=== PATIENT | female | born 1985 | race Caucasian/White ===

== ENCOUNTER 2017-08-29 12:37 | Inpatient (IN) | payer MEDICAID ==
[~2017-08-29] VITALS: Ht 170.2 cm; Wt 89.0 kg
[2017-08-29] VITALS (26 sets, daily range): BP systolic 85–97; BP diastolic 36–64; PULSE 73–98; RESP 18–20; TEMP 97.7–98.7
[2017-08-29] MEDS ORDERED: SODIUM CHLOR 0.9% 1000 ML INJ 1,000 ML OTHER PRN (14:14)
[2017-08-29] MEDS ORDERED: LACTATED RINGER'S 1000 ML INJ 1,000 ML IV PRN (14:14)
[2017-08-29] MEDS ORDERED: LIDOCAINE HCL 1% 50 ML VIAL INFIL PRN (14:15)
[2017-08-29] MEDS ORDERED: PENICILLIN G POTASSIUM INJ 5,000,000 UNITS in SODIUM CHLORIDE 0.9% INJ 100 ML IV ONE (14:15)
[2017-08-29] MEDS: SODIUM CHLORIDE 0.9% FLUSH 10 ML FLUSH IV FLUSH SCH ×2 (14:15→21:00)
[2017-08-29] MEDS ORDERED: SODIUM CHLORID 0.9% 500 ML INJ 500 ML IV PRN (14:15)
[2017-08-29] MEDS ORDERED: OXYTOCIN 30 UNITS-500ML PREMIX 500 ML IV ONE (14:15)
[2017-08-29] MEDS ORDERED: LIDOCAINE HCL 1% 50 ML VIAL I-DERMAL PRN (14:15)
[2017-08-29] MEDS ORDERED: CITRIC ACID-SODIUM CITRATE LIQ 30 ML UDC PO SCH (14:15)
[2017-08-29] MEDS ORDERED: SODIUM CHLORIDE 0.9% FLUSH 10 ML FLUSH IV FLUSH PRN (14:15)
[2017-08-29] MEDS ORDERED: MINERAL OIL 10 ML VIAL TOPICAL PRN (14:15)
--- NOTE | 2017-08-29 14:30 | HHI.HP ---
HPI Chief Complaint oligohydramnios Date Seen: Aug 29, 2017 Travel History International Travel<30 Days: No Contact w/Intl Traveler<30Days: No Known Affected Area: No History of Present Illness HPI 32 yo G1 with iup at 40 wk seen in the office today and found to have oligohydramnios. She is having good FM, no vb/lof, irreg contractions. She is a pt of [facility]; Her pnc has been uncomplicated. She has gained 40 pounds. Upon arrival to &D, she had srom, clear per RN. Weeks Gestation: 40 : 1 History Past Medical History Medical History: Denies Significant Hx Past Surgical History Narrative Surgical eye surgery Family History Family History: Negative Social History Alcohol Use: No Tobacco Use: No Substance Abuse: No Allergies-Medications (Allergen,Severity, Reaction): Coded Allergies: No Known Allergies (Verified Allergy, Severe, 08/29/17) Review of Systems General / Constitutional: No: Fever, Weight Gain, Chills, Other Eyes: No: Diploplia, Blurred Vision, Visual changes, Pain, Photophobia HENT: No: Headaches, Vertigo, Lightheadedness Cardiovascular: No: Irregular Rhythm, Chest Pain or Discomfort, Palpitations, Tachycardia, Syncope, Varicosities, Edema, Cyanosis Respiratory: No: Cough, Short of Breath, Other Gastrointestinal: No: Nausea, Vomiting, Diarrhea Genitourinary: No: Decreased Urinary Output, Oliguria Musculoskeletal: No: Limited ROM, Weakness, Cramping, Edema, Pain Skin: No Rash, No Itching, No Dryness, No Lumps, No Change in Pigmentation, No Change in Nails, No Alopecia, No Lesions Neurologic: No: Weakness, Dizziness, Syncope, Focal Abnormalities, Coordination Problem, Headache, Slurred Speech, Seizures Psychiatric: No: Depression, Suicidal Ideations, Homicidal Ideation Endocrine: No: Heat Intolerance, Cold Intolerance, Polydipsia, Polyuria, Other Physical Exam Narrative GENERAL: Well-nourished, well-developed patient. SKIN: Warm and dry. HEAD: Normocephalic and atraumatic. EYES: No scleral icterus. No injection or drainage. ENT: No nasal drainage noted. Mucous membranes pink. Airway patent. NECK: Supple, trachea midline. No JVD. CARDIOVASCULAR: Regular rate and rhythm without murmurs, gallops, or rubs. RESPIRATORY: Breath sounds equal bilaterally. No accessory muscle use. ABDOMEN/GI: Abdomen soft, non-tender, bowel sounds present, no rebound, no guarding Gravid to 40 weeks size GENITOURINARY: External Genitalia: intact and normal in appearance BUS glands: [-] Cervix:2/-3 Presentation: [facility] Membranes:srom while on L&D Uterine Contractions: [-] FHT's: Category: I Decels: [-] EXTREMITIES: No cyanosis or edema. BACK: Nontender without obvious deformity. No CVA tenderness. NEUROLOGICAL: Awake and alert. Motor and sensory grossly within normal limits. Five out of 5 muscle strength in all muscle groups. Normal speech. Caprini VTE Risk Assessment Caprini VTE Risk Assessment: No/Low Risk (score <= 1) Caprini Risk Assessment Model Point Value = 1 Point Value = 2 Point Value = 3 Point Value = 5 Age 41-60 Minor surgery BMI > 25 kg/m2 Swollen legs Varicose veins or History of unexplained or recurrent spontaneous Oral contraceptives or hormone replacement Sepsis (< 1 month) Serious lung disease, including pneumonia (< 1 month) Abnormal pulmonary function Acute myocardial infarction Congestive heart failure (< 1 month) History of inflammatory bowel disease Medical patient at bed rest Age 61-74 Arthroscopic surgery Major open surgery (> 45 min) Laparoscopic surgery (> 45 min) Malignancy Confined to bed (> 72 hours) Immobilizing plaster cast Central venous access Age >= 75 History of VTE Family history of VTE Factor V Leiden Prothrombin [id number] Lupus anticoagulant Anticardiolipin antibodies Elevated serum homocysteine Heparin-induced thrombocytopenia Other congenital or acquired thrombophilia Stroke (< 1 month) Elective arthroplasty Hip, pelvis, or leg fracture Acute spinal cord injury (< 1 month) Prophylaxis Regimen Total Risk Factor Score Risk Level Prophylaxis Regimen 0-1 Low Early ambulation 2 Moderate Order ONE of the following: *Sequential Compression Device (SCD) *Heparin 5000 units SQ BID 3-4 Higher Order ONE of the following medications: *Heparin 5000 units SQ TID *Enoxaparin/Lovenox 40 mg SQ daily (WT < 150 kg, CrCl > 30 mL/min) *Enoxaparin/Lovenox 30 mg SQ daily (WT < 150 kg, CrCl > 10-29 mL/min) *Enoxaparin/Lovenox 30 mg SQ BID (WT < 150 kg, CrCl > 30 mL/min) AND/OR *Sequential Compression Device (SCD) 5 or more Highest Order ONE of the following medications: *Heparin 5000 units SQ TID (Preferred with Epidurals) *Enoxaparin/Lovenox 40 mg SQ daily (WT < 150 kg, CrCl > 30 mL/min) *Enoxaparin/Lovenox 30 mg SQ daily (WT < 150 kg, CrCl > 10-29 mL/min) *Enoxaparin/Lovenox 30 mg SQ BID (WT < 150 kg, CrCl > 30 mL/min) AND *Sequential Compression Device (SCD) Data Data Vital Signs Reviewed: Yes Orders Orders Admit To Inpatient (08/29/17 ) Vital Signs (Adult) .Per protocol (08/29/17 14:14) Activity Oob Ad Yolande (08/29/17 14:14) Heart (08/29/17 14:14) Amnioinfusion (08/29/17 14:14) Urinary Catheter Management .ONCE (08/29/17 14:14) Lactated Ringer's 1000 Ml Inj (Lr 1000 M (08/29/17 14:14) Lactated Ringer's 1000 Ml Inj (Lr 1000 M (08/29/17 14:14) Sodium Chlorid 0.9% 500 Ml Inj (Ns 500 M (08/29/17 14:15) Sodium Chlor 0.9% 1000 Ml Inj (Ns 1000 M (08/29/17 14:34) Lidocaine 1% Inj (50 Ml) (Xylocaine 1% I (08/29/17 14:15) Citric Acid-Sodium Citrate Liq (Bicitra (08/29/17 14:15) Fentanyl Inj (Fentanyl Inj) (08/29/17 14:15) Fentanyl Inj (Fentanyl Inj) (08/29/17 14:15) Penicillin G Potassium Inj (Pfizerpen-G (08/29/17 14:15) Penicillin G Potassium Inj (Pfizerpen-G (08/29/17 18:15) Complete Blood Count With Diff (08/29/17 14:14) Hold Clot (08/29/17 14:14) Abo/Rh Blood Type (08/29/17 14:14) Urinalysis - C+S If Indicated (08/29/17 14:14) Drug Screen, Random Urine (08/29/17 14:14) Resp Oxygen Non Rebreathe Mask (08/29/17 ) ^ Epidural / Intrathecal Infus (08/29/17 14:14) Oxytocin 30 Units-500ml Premix (Pitocin (08/29/17 14:15) Lidocaine 1% Inj (50 Ml) (Xylocaine 1% I (08/29/17 14:15) Light Mineral Oil (Muri-Lube Oil) (08/29/17 14:15) Diet Regular Basic (08/29/17 Dinner) ^ Labor Induction (08/29/17 14:14) ^ Vaginal Insert (08/29/17 14:14) ^ Vaginal Lavage (08/29/17 14:14) Heart (08/29/17 14:14) Sodium Chloride 0.9% Flush (Ns Flush) (08/29/17 14:15) Sodium Chloride 0.9% Flush (Ns Flush) (08/29/17 14:15) Sodium Chlor 0.9% 1000 Ml Inj (Ns 1000 M (08/29/17 14:14) Dinoprostone Vag Insert (Cervidil Vag In (08/29/17 14:15) Inpatient Certification (08/29/17 ) Specimen To Be Collected PRN (08/29/17 14:14) Specimen To Be Collected PRN (08/29/17 14:14) Group B Strep: Positive Assessment/Plan Problem List: (1) Oligohydramnios ICD Codes: O41.00X0 - Oligohydramnios, unspecified trimester, not applicable or unspecified (2) PROM (premature rupture of membranes) ICD Codes: O42.90 - Premature rupture of membranes, unspecified as to length of time between rupture and onset of labor, unspecified weeks of gestation Assessment and Plan 32 yo G1 wiht iup at 40 wk admitted for iol due to oligohydramnios 1) IOL- family aware that it can be a prolonged process. will start with cervidil, then pitocin. Discussed risks of cd if arrest of dilation, descent, nrfht occurs. 2) PROM- 1335, clear 3) GBS- pcn prophy 4) fetus- cephalic, measures AGA, male BrandtNichole cardona MD Aug 29, 2017 14:29
[2017-08-29] MEDS ORDERED: SODIUM CHLOR 0.9% 1000 ML INJ 1,000 ML IV PRN (14:34)
[2017-08-29] MEDS: LACTATED RINGER'S 1000 ML INJ 1,000 ML IV SCH ×2 (14:48→19:17)
[2017-08-29] MEDS ORDERED: PRENTAB7 (14:57)
[2017-08-29] MEDS ORDERED: DINOPROSTONE 10 MG VAG INSERT VAGINAL ONE (15:00)
[2017-08-29 15:48] LABS: AUTOMATED NEUTROPHIL # 7.5 TH/MM3 (1.8-7.7); BASOPHIL % 0.4 % (0.0-2.0); EOSINOPHIL # 0.1 TH/MM3 (0-0.4); EOSINOPHIL % 1.1 % (0.0-4.0); HEMATOCRIT 36.9 % (35.0-46.0); HEMO FLAGS DIFF FINAL; LYMPHOCYTE # 1.7 TH/MM3 (1.0-4.8); MEAN CELL VOLUME 93.3 FL (80.0-100.0); MEAN CORPUSCULAR HEMOGLOBIN 31.4 PG (27.0-34.0); MEAN CORPUSCULAR HGB CONC 33.6 % (32.0-36.0); MONO % 6.6 % (0.0-8.0); NEUT % 74.9 % (16.0-70.0); PLATELET COUNT 259 TH/MM3 (150-450); RED BLOOD COUNT 3.96 MIL/MM3 (4.00-5.30); RED CELL DISTRIBUTION WIDTH 14.7 % (11.6-17.2)
[2017-08-29 17:35] LABS: BACTERIA, URINE FEW /hpf; BLOOD, URINE SMALL (NEG); CALCIUM OXALATE CRYSTALS,URINE OCC /hpf; COMMENT (UR) CULTURE INDICATED; CULTURE IF INDICATED CULTURE INDICATED; GLUCOSE,URINE NEG (NEG); KETONE, URINE NEG (NEG); MUCUS URINE FEW /lpf (OCC); NITRITE,URINE NEG (NEG); SQUAMOUS EPITHELIAL CELL URINE 41 /hpf (0-5); URINE COLOR YELLOW (YELLW/STRAW)
[2017-08-29] MEDS: PENICILLIN G POTASSIUM INJ 2,500,000 UNITS in SODIUM CHLORIDE 0.9% INJ 100 ML IV SCH ×2 (19:16→22:01)
[2017-08-30] VITALS (104 sets, daily range): BP systolic 78–135; BP diastolic 36–72; PULSE 61–121; RESP 16–20; TEMP 97.6–98.7; O2SAT 100
[2017-08-30] MEDS: PENICILLIN G POTASSIUM INJ 2,500,000 UNITS in SODIUM CHLORIDE 0.9% INJ 100 ML IV SCH ×4 (02:50→14:00)
[2017-08-30] MEDS ORDERED: OXYTOCIN 30 UNITS/NS 500ML PREMIX IV SCH (04:15)
[2017-08-30] MEDS ORDERED: fentaNYL 2MCG-BUPIV 0.125% INJ 100 ML ONE (08:50)
--- NOTE | 2017-08-30 08:50 | PD.LABORPN ---
Subjective Subjective starting to become uncomfortable Objective Vital Signs Vital Signs Date Time Temp Pulse Resp B/P (MAP) Pulse Ox O2 Delivery O2 Flow Rate FiO2 08/30/17 08:30 76 08/30/17 08:30 89 115/62 (79) 08/30/17 08:25 82 08/30/17 08:20 68 08/30/17 08:15 62 08/30/17 08:15 65 109/62 (78) 08/30/17 08:10 64 08/30/17 08:05 68 08/30/17 08:00 61 08/30/17 08:00 69 107/62 (77) 08/30/17 07:55 78 08/30/17 07:50 75 08/30/17 07:45 64 08/30/17 07:45 72 107/66 (80) 08/30/17 07:40 74 08/30/17 07:35 69 08/30/17 07:30 97.7 08/30/17 07:30 20 08/30/17 07:30 79 08/30/17 07:30 84 107/65 (79) 08/30/17 07:25 70 08/30/17 07:20 67 08/30/17 07:19 65 102/50 (67) 08/30/17 07:15 71 08/30/17 07:10 71 08/30/17 05:30 98.4 18 08/30/17 05:26 73 85/49 (61) 08/30/17 04:55 75 08/30/17 04:15 70 08/30/17 03:55 71 08/30/17 03:25 77 08/30/17 02:55 75 08/30/17 02:25 75 08/30/17 01:55 68 08/30/17 01:20 77 08/30/17 00:55 73 Objective Pelvic Exam: 3-4/50/-3 Presentation: ceph Membranes: ruptured] Uterine Contractions:irreg FHT's: Category:I Decels: [-] Weeks Gestation: 40 Pt started active labor?: No Medical induction of labor?: Yes Medical induction start date: Aug 29, 2017 Medical induction start time: 15:00 Artificial rupture of membrane: No Assessment/Plan Problem List: (1) Oligohydramnios ICD Codes: O41.00X0 - Oligohydramnios, unspecified trimester, not applicable or unspecified (2) PROM (premature rupture of membranes) ICD Codes: O42.90 - Premature rupture of membranes, unspecified as to length of time between rupture and onset of labor, unspecified weeks of gestation Assessment and Plan 32 yo G1 with iup at 40 wk 1d admitted for iol due to oligohydramnios 1) IOL-s/p cervidil, on pitocin 5 milliunits/min, desires epidural now 2) PROM- 1335, clear 3) GBS- pcn prophy 4) fetus- cephalic, measures AGA, male BrandtNichole cardona MD Aug 30, 2017 08:50
[2017-08-30] MEDS: SODIUM CHLORIDE 0.9% FLUSH 10 ML FLUSH IV FLUSH SCH (09:00)
[2017-08-30] MEDS ORDERED: OXYTOCIN 30 UNITS-500ML PREMIX 500 ML IV SCH (09:00)
[2017-08-30] MEDS ORDERED: ePHEDrine/NS 25 MG/5 ML SYR ONE (09:26)
[2017-08-30] MEDS ORDERED: fentaNYL 2MCG-BUPIV 0.125% 100 ML EPIDURAL SCH (10:00)
[2017-08-30] MEDS ORDERED: DO NOT ADMINISTER ANTICOAGULANTS PRN (10:00)
[2017-08-30] MEDS ORDERED: ePHEDrine/NS 25 MG/5 ML SYR IV PUSH PRN (10:00)
[2017-08-30] MEDS ORDERED: NO SYSTEM NARCOTICS PRN (10:00)
[2017-08-30] MEDS: LACTATED RINGER'S 1000 ML INJ 1,000 ML IV SCH ×2 (11:05→15:53)
[2017-08-30] MEDS ORDERED: LACTATED RINGER'S 1000 ML INJ 1,000 ML IV ONE (19:22)
[2017-08-30] MEDS ORDERED: ceFAZolin INJ 1,000 MG VIAL ONE (19:46)
[2017-08-30] MEDS ORDERED: LACTATED RINGER'S 1000 ML INJ 1,000 ML IV SCH (19:52)
[2017-08-30] MEDS ORDERED: ROPIVACAINE 1% PF INJ 20 ML AMP ONE (20:30)
[2017-08-30] MEDS ORDERED: EPIDURAL-DO NOT ADMINISTER ANTICOAGULANTS PRN (20:30)
[2017-08-30] MEDS ORDERED: EPIDURAL-NO SYSTEMIC NARCOTICS PRN (20:30)
[2017-08-30] MEDS ORDERED: EPIDURAL-DIPHENHYDRAMINE HCL 50 MG CAP PO PRN (20:30)
[2017-08-30] MEDS ORDERED: ceFAZolin 2 GM PREMIX 50 ML IV SCH (20:30)
[2017-08-30] MEDS ORDERED: EPIDURAL-DIPHENHYDRAMINE HCL 50 MG/ML VIAL IV PUSH PRN (20:30)
[2017-08-30] MEDS ORDERED: DEXAMETHASONE SOD PHOS PF 10 MG/ML VIAL ONE (20:30)
[2017-08-30] MEDS ORDERED: EPIDURAL-NALOXONE HCL 0.4 MG/ML AMP IV PUSH PRN (20:30)
[2017-08-30] MEDS ORDERED: ROPIVACAINE 0.5% PF INJ 30 ML VIAL ONE (20:37)
[2017-08-30] MEDS ORDERED: CITRIC ACID-SODIUM CITRATE LIQ 30 ML UDC PO SCH (21:00)
--- NOTE | 2017-08-30 21:24 | PD.OB.DELI ---
Procedure Note Section Procedure Pre Op Diagnosis: (1) Cephalopelvic disproportion (2) Oligohydramnios (3) PROM (premature rupture of membranes) Post Op Diagnosis: (1) Cephalopelvic disproportion (2) Oligohydramnios (3) PROM (premature rupture of membranes) Performed by Nichole Brandt Procedure: Primary Low Transverse Sec Indication for delivery: malposition (ROT), Other (cephalopelvic disproportion) Previous condition: None Informed consent obtained: For anesthesia, For procedure Confirmed correct: Patient, Procedure, Site, Time-out taken Anesthesia: Epidural Medication prior to procedure: As documented in eMAR Monitoring during procedure: Blood pressure monitoring, Pulse oximetry Urinary catheter: Inserted using sterile technique, To dependent drainage, ml urine output (300) Sterile preparation: With 2% chlorexidine (Hibiclens) Position: Supine with wedge to right side, Supine with safety belt applied Operative Features Skin Incision: Pfannenstiel Membranes Ruptured: Previously (srom), Appearance of fluid (clear) Presentation: Other (ROT) Delivery date: Aug 30, 2017 Delivery time: 20:17 Delivery of infant: Uneventful Infant: Male One Minute : 8 Five Minute : 9 Weight: 4320g Status of infant: Viable, Cord blood Placenta delivered: Intact Medications: Antibiotics, Oxytocin Estimated blood loss: 700ml Procedure tolerated: Well Maternal Condition: Stable Condition: Stable Procedure in detail dictation Nichole Brandt MD Aug 30, 2017 21:24
[2017-08-30] MEDS ORDERED: OXYTOCIN 30 UNITS-500ML PREMIX 500 ML IV ONE (21:45)
[2017-08-30] MEDS ORDERED: DOCUSATE SODIUM 50 MG/SENNA 8.6 MG TAB PO PRN (21:45)
[2017-08-30] MEDS ORDERED: oxyCODONE/ACETAMINOPHEN 5 MG/325 MG TAB PO PRN (21:45)
[2017-08-30] MEDS ORDERED: ACETAMINOPHEN 325 MG TAB PO PRN (21:45)
[2017-08-30] MEDS ORDERED: ACETAMINOPHEN 1000 MG/100 ML 100 ML IV ONE (21:45)
[2017-08-30] MEDS ORDERED: SIMETHICONE 80 MG CHEWABLE TAB PO PRN (21:45)
[2017-08-30] MEDS ORDERED: ONDANSETRON HCL 4 MG/2 ML VIAL IV PUSH PRN (21:45)
[2017-08-30] MEDS ORDERED: SODIUM CHLORIDE 0.9% FLUSH 10 ML FLUSH IV FLUSH PRN (21:45)
[2017-08-31] VITALS (8 sets, daily range): BP systolic 91–99; BP diastolic 51–63; PULSE 66–83; RESP 16–18; TEMP 98–98.6; O2SAT 97–99
[2017-08-31] MEDS: LACTATED RINGER'S 1000 ML INJ 1,000 ML IV SCH ×2 (02:30→14:22)
[2017-08-31 06:03] LABS: AUTOMATED NEUTROPHIL # 18.4 TH/MM3 (1.8-7.7); BASOPHIL % 0.1 % (0.0-2.0); HEMATOCRIT 32.9 % (35.0-46.0); HEMO FLAGS DIFF FINAL; LYMPH % 4.5 % (9.0-44.0); LYMPHOCYTE # 0.9 TH/MM3 (1.0-4.8); MEAN CELL VOLUME 92.3 FL (80.0-100.0); MEAN CORPUSCULAR HEMOGLOBIN 32.4 PG (27.0-34.0); MEAN CORPUSCULAR HGB CONC 35.1 % (32.0-36.0); MONO % 4.5 % (0.0-8.0); NEUT % 90.9 % (16.0-70.0); PLATELET COUNT 214 TH/MM3 (150-450); RED BLOOD COUNT 3.57 MIL/MM3 (4.00-5.30); RED CELL DISTRIBUTION WIDTH 14.3 % (11.6-17.2); WHITE BLOOD COUNT 20.2 TH/MM3 (4.0-11.0)
[2017-08-31] MEDS ORDERED: OXYTOCIN 30 UNITS-500ML PREMIX 500 ML IV PRN (07:45)
--- NOTE | 2017-08-31 07:52 | HHI.OB ---
Subjective Post Operative Day: 1 Remarks s/p unscheduled CD for arrest of labor, CPD ( >9# at ) Objective Vitals/I&O Vital Signs Date Time Temp Pulse Resp B/P (MAP) Pulse Ox O2 Delivery O2 Flow Rate FiO2 08/31/17 03:05 98.4 83 18 97 08/31/17 03:05 98/51 (67) 08/31/17 00:43 16 08/31/17 00:15 18 08/30/17 23:39 98.7 71 18 110/53 (72) 08/30/17 22:45 66 18 135/71 (92) 100 08/30/17 22:30 100 08/30/17 22:30 65 18 134/66 (88) 08/30/17 22:15 98.3 08/30/17 22:15 113/55 (74) 08/30/17 22:15 68 18 100 08/30/17 22:00 69 18 132/58 (82) 100 08/30/17 21:45 70 18 93/51 (65) 08/30/17 21:45 100 08/30/17 21:30 100 08/30/17 21:30 97.8 74 18 106/59 (75) 08/30/17 19:30 75 114/55 (74) 08/30/17 19:04 18 08/30/17 19:02 98.0 08/30/17 19:00 78 08/30/17 19:00 113/70 (84) 08/30/17 18:30 72 113/59 (77) 08/30/17 18:15 16 08/30/17 18:00 71 107/62 (77) 08/30/17 17:36 16 08/30/17 17:30 75 97/60 (72) 08/30/17 17:15 16 08/30/17 17:00 80 92/47 (62) 08/30/17 16:45 16 08/30/17 16:45 97.6 08/30/17 16:30 75 101/60 (74) 08/30/17 16:15 16 08/30/17 16:00 71 109/64 (79) 08/30/17 15:45 97.8 08/30/17 15:45 16 08/30/17 15:30 75 102/61 (75) 08/30/17 14:45 18 08/30/17 14:30 69 99/55 (70) 08/30/17 14:15 18 08/30/17 14:01 72 103/57 (72) 08/30/17 13:45 16 08/30/17 13:30 67 103/52 (69) 08/30/17 13:15 97.6 08/30/17 13:15 16 08/30/17 13:00 66 114/59 (77) 08/30/17 12:39 16 08/30/17 12:30 71 101/69 (80) 08/30/17 12:13 18 08/30/17 12:12 119 97/72 (80) 08/30/17 11:45 18 08/30/17 11:30 72 81/36 (51) 08/30/17 11:30 70 08/30/17 11:02 16 08/30/17 11:01 97.8 08/30/17 11:01 78 78/36 (50) 08/30/17 11:00 83 08/30/17 10:55 74 08/30/17 10:55 73 08/30/17 10:50 72 08/30/17 10:50 18 08/30/17 10:50 72 08/30/17 10:45 73 08/30/17 10:45 73 109/55 (73) 08/30/17 10:45 68 08/30/17 10:40 65 08/30/17 10:40 65 100/56 (71) 08/30/17 10:40 68 08/30/17 10:35 66 08/30/17 10:35 67 95/59 (71) 08/30/17 10:35 66 08/30/17 10:30 69 100/53 (69) 08/30/17 10:30 66 08/30/17 10:30 71 08/30/17 10:25 69 08/30/17 10:25 74 101/56 (71) 08/30/17 10:25 76 08/30/17 10:20 71 08/30/17 10:20 74 08/30/17 10:20 77 110/49 (69) 08/30/17 10:15 77 111/56 (74) 08/30/17 10:15 71 12/7/17 10:15 77 08/30/17 10:10 84 08/30/17 10:10 81 105/59 (74) 08/30/17 10:10 80 08/30/17 10:05 76 08/30/17 10:05 76 08/30/17 10:05 77 105/56 (72) 08/30/17 10:04 18 08/30/17 10:00 72 08/30/17 10:00 71 103/56 (72) 08/30/17 10:00 75 08/30/17 09:55 77 107/55 (72) 08/30/17 09:55 73 08/30/17 09:55 68 08/30/17 09:50 75 08/30/17 09:50 16 08/30/17 09:50 94 100/58 (72) 08/30/17 09:45 113 94/48 (63) 08/30/17 09:45 82 08/30/17 09:45 121 08/30/17 09:40 80 88/39 (55) 08/30/17 09:40 80 08/30/17 09:40 81 08/30/17 09:36 80 97/46 (63) 08/30/17 09:35 90 08/30/17 09:35 89 08/30/17 09:30 81 08/30/17 09:30 95 96/43 (60) 08/30/17 09:30 91 08/30/17 09:28 87 103/52 (69) 08/30/17 09:25 93 08/30/17 09:25 92 92/45 (61) 08/30/17 09:25 97 08/30/17 09:23 88 90/44 (59) 08/30/17 09:20 80 08/30/17 09:20 80 08/30/17 09:19 79 97/60 (72) 08/30/17 09:15 82 08/30/17 09:15 91 08/30/17 09:15 89 102/67 (79) 08/30/17 09:10 80 08/30/17 09:05 77 08/30/17 09:01 70 107/58 (74) 08/30/17 09:00 69 08/30/17 08:55 79 08/30/17 08:50 72 08/30/17 08:30 76 08/30/17 08:30 89 115/62 (79) 08/30/17 08:25 82 08/30/17 08:20 68 08/30/17 08:15 62 08/30/17 08:15 65 109/62 (78) 08/30/17 08:10 64 08/30/17 08:05 68 08/30/17 08:00 61 08/30/17 08:00 69 107/62 (77) 08/30/17 07:55 78 08/30/17 07:50 75 Result Diagram: 08/31/17 0520 Objective Remarks GENERAL: Well-nourished, well-developed patient. CARDIOVASCULAR: Regular rate and rhythm without murmurs, gallops, or rubs. RESPIRATORY: Breath sounds equal bilaterally. No accessory muscle use. ABDOMEN/GI: Abdomen soft, non-tender, bowel sounds present. Incision: bandage in place, Clean, dry and intact. Fundus: Firm, non-tender at umbilicus. GENITOURINARY: Light bleeding. EXTREMITIES: No cyanosis or edema, non-tender, without signs of DVT. Medications and IVs Current Medications Medications (Trade) Dose Ordered Sig/Leila Route Start Time Stop Time Status Last Admin Lactated Ringer's 1,000 ml @ 100 mls/hr Q10H IV 08/31/17 02:30 08/31/17 22:29 08/31/17 02:30 Oxytocin 500 ml @ 100 mls/hr UNSCH X1 PRN IV 08/31/17 07:45 09/01/17 07:44 (NS Flush) 2 ml BID IV FLUSH 08/30/17 21:45 (NS Flush) 2 ml UNSCH PRN IV FLUSH 08/30/17 21:45 (Mylicon Chew) 80 mg QID PRN PO 08/30/17 21:45 (Tylenol) 650 mg Q6H PRN PO 08/30/17 21:45 (Motrin) 600 mg Q6H PRN PO 08/30/17 21:45 (Percocet 5-325 Mg) 1 tab Q4H PRN PO 08/30/17 21:45 (Percocet 5-325 Mg) 2 tab Q4H PRN PO 08/30/17 21:45 (Karyn-Colace) 2 tab Q12H PRN PO 08/30/17 21:45 (M-M-R Ii Inj) 0.5 ml ONCE ONCE SQ 08/31/17 16:00 08/31/17 16:01 (Boostrix Inj) 0.5 ml ONCE ONCE IM 08/31/17 16:00 08/31/17 16:01 (Zofran Inj) 4 mg Q6H PRN IV PUSH 08/30/17 21:45 Miscellaneous Information NO SYSTEMIC NARCOTICS TO BE GIVEN FO... UNSCH PRN .XX 08/30/17 20:30 08/31/17 20:29 (Narcan Inj) 0.4 mg UNSCH PRN IV PUSH 08/30/17 20:30 08/31/17 20:29 (Benadryl Inj) 25 mg Q6H PRN IV PUSH 08/30/17 20:30 08/31/17 20:29 (Benadryl) 50 mg Q6H PRN PO 08/30/17 20:30 08/31/17 20:29 Miscellaneous Information ALL NURSING DEPARTMENTS UNSCH PRN .XX 08/30/17 20:30 08/31/17 20:29 Assessment/Plan Problem List: (1) S/P primary low transverse ICD Codes: Z98.891 - History of uterine scar from previous surgery Status: Acute (2) Oligohydramnios ICD Codes: O41.00X0 - Oligohydramnios, unspecified trimester, not applicable or unspecified Status: Acute Qualifiers: Qualified Codes: O41.03X0 - Oligohydramnios, third trimester, not applicable or unspecified (3) Cephalopelvic disproportion ICD Codes: O33.9 - Maternal care for disproportion, unspecified Status: Acute Qualifiers: Qualified Codes: O33.5XX0 - Maternal care for disproportion due to unusually large fetus, not applicable or unspecified Assessment and Plan 32 yo s/p primary LTCD at 40 wks after IOL for oligohydramnios at term routine supportive care encouraged ambulation, shower today & remove bandage for circ, will plan for tmrw routine d/c planning for POD#2 or #3 Discharge Planning routine, tmrw or Sunday Snehal Hobbs MD Aug 31, 2017 07:52
[2017-08-31] MEDS ORDERED: PERI PO (07:53)
[2017-08-31] MEDS ORDERED: IBUP-232 PO (07:53)
[2017-08-31] MEDS ORDERED: OXYC1TAB63 PO (07:53)
[2017-08-31] MEDS: SODIUM CHLORIDE 0.9% FLUSH 10 ML FLUSH IV FLUSH SCH ×2 (09:06→21:00)
--- NOTE | 2017-08-31 09:38 | MP ---
cc: NICHOLE BRANDT MD DATE OF SURGERY 08/30/2017 PREOPERATIVE DIAGNOSIS Oligohydramnios with premature rupture of membranes, cephalopelvic disproportion. DIAGNOSIS Oligohydramnios with premature rupture of membranes, cephalopelvic disproportion. SURGEON Nichole Brandt MD GARMENT INSPECTOR Johnny Shafer, MS-3 [facility] [employer] and staff PROCEDURE PERFORMED Primary low transverse delivery INDICATION The patient is a 32-year G1 with an intrauterine at 40 weeks who was admitted for induction of labor secondary to oligohydramnios. She had mature rupture of membrane upon admission, her induction was started with Cervidil. She had a low Garcia score. Subsequently, Pitocin was started and as she had remained 4 cm for several hours. An intrauterine pressure catheter was placed and Pitocin was adjusted to achieve adequate amounts [place] units. She had an episode of variable decelerations that responded with an amniotic and saline infusion and subsequently remained with a category one strip. She progressed to 8-9 cm, complete effacement, but continued to have -1 station. The fetus was noted to be OP presentation and had significant molding and caput. Discussed with the family that it was likely cephalopelvic disproportion and delivery was indicated. The patient and were in agreement with the plan of care. ANESTHESIA Epidural IV FLUIDS 1700 mL ESTIMATED BLOOD LOSS 700 mL URINE OUTPUT 32 mL of clear yellow urine at the end of the case ANTIBIOTICS Ancef 2 grams IV given pre-incision. DVT PROPHYLAXIS SCD's bilateral extremities. COMPLICATIONS None COUNTS Correct x3 ASSESSMENT Cord blood INTRAOPERATIVE FINDINGS A viable male infant with 's of 8 and 9 at one minute and five minutes respectively. weight of 4320 grams. Presentation ROT. The placenta intact with a three-vessel cord. Normal uterus, tubes and ovaries bilaterally. Clear amniotic fluid. PROCEDURE NOTE After of informed consent, the patient was taken to the operating room where epidural was redosed and noted to be adequate. A Mayberry was already in place. The abdomen was prepped and draped in a normal sterile fashion. A Pfannenstiel skin incision was made with a scalpel, carried down to the underlying layer of fascia with the Bovie. The fascia was incised in the midline with the Bovie. This incision was extended bilaterally with Monte scissors. Shasta clamps were placed in the superior aspect of the fascia. The rectus muscles were from the fascia bluntly, as well as with the aid of Monte scissors. The same was repaired inferiorly. The rectus muscles were in the midline with a hemostat. The peritoneum was entered bluntly. This incision was extended bluntly. A bladder blade was then inserted. A low transverse uterine incision was made with a scalpel and extended bluntly. The head was flexed and brought to the level of the hysterotomy. Gentle fundal pressure was used to deliver the head. The rest of body readily followed. Delayed cord clamping was performed. The cord was then doubly clamped and cut. Cord blood was sent. Gentle uterine massage and cord traction was used to deliver the placenta. The uterus was then exteriorized, cleared of any clots and debris using a moistened laparotomy sponge. The uterus was repaired in two layers with #1 chromic in a running locked fashion followed by an imbricating layer. The posterior cul-de-sac was irrigated and suctioned. The hysterotomy was inspected, noted to be hemostatic. The uterus was returned to the abdomen. The anterior cul-de-sac was irrigated and suctioned. The peritoneum was closed with 2-0 chromic in a running fashion. The fascia was closed #1 Vicryl in a running fashion. The subcutaneous tissue was irrigated and suctioned. Hemostasis was obtained with the Bovie. 2-0 chromic was used to close this layer, 3-0 Monocryl was used to close the skin in a subcuticular fashion. Steri-Strips were placed followed by a pressure dressing. The patient taken back in stable condition. Nichole Brandt MD PE/NATASHA /9:25 PM /9:22 AM
[2017-08-31] MEDS: IBUPROFEN 600 MG TAB PO PRN ×2 (11:26→17:35)
[2017-08-31] MEDS ORDERED: MEASLES, MUMPS, RUBELLA VACCINE 0.5 ML VIAL SQ ONE (16:00)
[2017-08-31] MEDS ORDERED: DIPHTH/TETANUS/ACEL PERTUSSIS (BOOSTER) 0.5 ML VIAL/PFS IM ONE (16:00)
[2017-08-31] MEDS: oxyCODONE/ACETAMINOPHEN 5 MG/325 MG TAB PO PRN (20:27)
[2017-09-01] MEDS: oxyCODONE/ACETAMINOPHEN 5 MG/325 MG TAB PO PRN ×2 (04:00→10:53)
[2017-09-01] MEDS: IBUPROFEN 600 MG TAB PO PRN ×2 (04:00→10:54)
[2017-09-01 08:05] VITALS: BP 96/52; PULSE 67; RESP 16; TEMP 98
--- NOTE | 2017-09-01 09:57 | HHI.OB ---
Subjective Post Operative Day: 2 Objective Vitals/I&O Vital Signs Date Time Temp Pulse Resp B/P (MAP) Pulse Ox O2 Delivery O2 Flow Rate FiO2 09/01/17 08:05 98.0 67 16 96/52 (67) 08/31/17 16:30 98.0 73 16 96/60 (72) 97 08/31/17 13:25 91/57 (68) 08/31/17 13:25 98.4 74 18 99 Result Diagram: 08/31/17 0520 Objective Remarks GENERAL: Well-nourished, well-developed patient. CARDIOVASCULAR: Regular rate and rhythm without murmurs, gallops, or rubs. RESPIRATORY: Breath sounds equal bilaterally. No accessory muscle use. ABDOMEN/GI: Abdomen soft, non-tender, bowel sounds present. Incision: Clean, dry and intact. steri-strips in place Fundus: Firm, non-tender at umbilicus. GENITOURINARY: Light bleeding. EXTREMITIES: No cyanosis or edema, non-tender, without signs of DVT. Medications and IVs Current Medications Medications (Trade) Dose Ordered Sig/Leila Route Start Time Stop Time Status Last Admin (NS Flush) 2 ml BID IV FLUSH 08/30/17 21:45 (NS Flush) 2 ml UNSCH PRN IV FLUSH 08/30/17 21:45 (Mylicon Chew) 80 mg QID PRN PO 08/30/17 21:45 (Tylenol) 650 mg Q6H PRN PO 08/30/17 21:45 (Motrin) 600 mg Q6H PRN PO 08/30/17 21:45 09/01/17 04:00 (Percocet 5-325 Mg) 1 tab Q4H PRN PO 08/30/17 21:45 (Percocet 5-325 Mg) 2 tab Q4H PRN PO 08/30/17 21:45 09/01/17 04:00 (Karyn-Colace) 2 tab Q12H PRN PO 08/30/17 21:45 (Zofran Inj) 4 mg Q6H PRN IV PUSH 08/30/17 21:45 Assessment/Plan Problem List: (1) S/P primary low transverse ICD Codes: Z98.891 - History of uterine scar from previous surgery Status: Acute (2) Oligohydramnios ICD Codes: O41.00X0 - Oligohydramnios, unspecified trimester, not applicable or unspecified Status: Acute Qualifiers: Qualified Codes: O41.03X0 - Oligohydramnios, third trimester, not applicable or unspecified (3) Cephalopelvic disproportion ICD Codes: O33.9 - Maternal care for disproportion, unspecified Status: Acute Qualifiers: Qualified Codes: O33.5XX0 - Maternal care for disproportion due to unusually large fetus, not applicable or unspecified Assessment and Plan 32 yo s/p primary LTCD at 40 wks after IOL for oligohydramnios at term routine supportive care infant circ performed by me this AM, no complications, reviewed post-care instructions w pt & father of baby d/c to home today Discharge Planning routine Snehal Hobbs MD Sep 01, 2017 09:57
--- NOTE | 2017-09-01 09:57 | HHI.DCPOC ---
Discharge Care Plan Diagnosis: (1) S/P primary low transverse Your Health Problems Are: delivery Report Symptoms to Your Doctor -Temperature above 100.5 degrees -Redness, of incision or excessive or foul smelling drainage -Unusual pain or calf pain -Increased vaginal bleeding -Painful or difficulty urinating -Feelings of extreme sadness or anxiety after 2 weeks Goals to Promote Your Health * To prevent worsening of your condition and complications * To maintain your health at the optimal level Directions to Meet Your Goals Take your medications as prescribed Follow your dietary instruction Follow activity as directed Ensure plenty of rest for recovery Drink fluids for hydration Keep your appointments as scheduled Take your immunizations and boosters as scheduled If your symptoms worsen call your PCP, if no PCP go to Urgent Care Center or Emergency Room Smoking is Dangerous to Your Health. Avoid second hand smoke Call the 24-hour crisis hotline for domestic abuse at Snehal Hobbs MD Sep 01, 2017 09:57
== END 2017-09-01 13:09 | disposition home or self-care (01) | DRG 766 ==
LOC: H2EB 12:37 → H1EA 08-30 23:04
PROVIDERS: ADMIT Obstetrics & Gynecology; ATTEND Obstetrics & Gynecology
PROC: 3E0P7VZ Introduction of Hormone into Female Reproductive, Via Natural or Artificial Opening (ICD-10-PCS; 2017-08-29)
PROC: 10D00Z1 Extraction of Products of Conception, Low, Open Approach (ICD-10-PCS; principal; 2017-08-30)
DX: O41.03X0 Oligohydramnios, third trimester, not applicable or unspecified (principal); O33.9 Maternal care for disproportion, unspecified; O42.92 Full-term premature rupture of membranes, unspecified as to length of time between rupture and onset of labor; O76 Abnormality in fetal heart rate and rhythm complicating labor and delivery; Z37.0 Single live birth; Z3A.40 40 weeks gestation of pregnancy
CPT/HCPCS: 80307; 81001; 84112; 85025; 86850; 86900; 86901; 87086; J0690; J1100; J2540; J2590; J2795; J7120